=== PATIENT | female | born 1975 | race Caucasian/White ===

== ENCOUNTER → 2018-10-10 | Outpatient (CLI) | payer OTHER | LOC: BRMIMAGING 07:51 | PROVIDERS: ATTEND Internal Medicine | DX: N18.9 Chronic kidney disease, unspecified (principal); R93.422 Abnormal radiologic findings on diagnostic imaging of left kidney; Z79.899 Other long term (current) drug therapy; Z90.49 Acquired absence of other specified parts of digestive tract; Z52.6 Liver donor | CPT/HCPCS: 76700-PO ==

== ENCOUNTER → 2018-10-18 | Outpatient (CLI) | payer OTHER | LOC: CIMAGING 08:08 | PROVIDERS: ATTEND Internal Medicine | DX: N13.30 Unspecified hydronephrosis (principal); K59.00 Constipation, unspecified | CPT/HCPCS: 74176-PO ==